=== PATIENT | male | born 1985 | race Caucasian/White ===

== ENCOUNTER 2017-07-14 23:16 | Emergency (ER) | payer SELFPAY ==
[~2017-07-14] VITALS: Ht 180.3 cm; Wt 63.5 kg
[2017-07-14 23:40] VITALS: BP 126/83
[2017-07-15] MEDS ORDERED: HYDROcodone/APAP 5/325MG 1 TAB TABLET PO ONE (00:15)
[2017-07-15] MEDS ORDERED: PENI500T PO (00:17)
[2017-07-15] MEDS ORDERED: HYDR-971 PO (00:17)
--- NOTE | 2017-07-15 00:17 | PHYS DOC ---
Past Medical History Past Medical History: No Pertinent History, Unknown Past Surgical History: No Surgical History Alcohol Use: None Drug Use: None Adult General Chief Complaint Chief Complaint: DENTAL PROBLEM HPI HPI Patient is a 31 year old male who presents with dental pain. Patient reports three-day history of severe right maxillary dental pain associated with tooth decay. He states he has had dental caries for months but just recently had onset of pain. Denies fevers or chills, nausea or vomiting, jaw swelling, trismus, abscess. He reports pain radiates to right ear. Has been using Orajel and clove extract which does not help with the pain. He does not have a dentist currently. Review of Systems Review of Systems Constitutional: Denies fever or chills HENT: Reports dental pain Respiratory: Denies cough Cardiovascular: Denies chest pain GI: Denies abdominal pain, nausea, vomiting Integument: Denies rash Neurologic: Denies headache Current Medications Current Medications Current Medications Medications (Trade) Dose Ordered Sig/Jen Start Time Stop Time Status Last Admin Dose Admin Acetaminophen/ Hydrocodone Bitart (Lortab 5/325) 2 tab 1X ONCE 07/15/17 00:15 07/15/17 00:16 DC 07/15/17 00:24 2 TAB Allergies Allergies Allergies Coded Allergies Type Severity Reaction Last Updated Verified No Known Drug Allergies 07/11/16 No Physical Exam Physical Exam Constitutional: Well developed, well nourished, no acute distress, non-toxic appearance. HENT: Normocephalic, atraumatic, bilateral external ears normal, right TM normal in appearance, no bulging or erythema oropharynx moist, nose normal. Eyes: conjunctiva normal, no discharge. Cardiovascular: no edema. Lungs & Thorax: no respiratory distress. Abdomen: nondistended. Skin: Warm, dry, no erythema, no rash. Extremities: No deformity Neurologic: Alert and oriented X 3 Current Patient Data Vital Signs Vital Signs Date Time Temp Pulse Resp B/P (MAP) Pulse Ox O2 Delivery O2 Flow Rate FiO2 07/15/17 00:24 18 100 Room Air 07/14/17 23:40 98.3 68 98.3 EKG EKG [] Radiology/Procedures Radiology/Procedures [] Course & Med Decision Making Course & Med Decision Making Pertinent Labs and Imaging studies reviewed. (See chart for details) The patient presents with dental pain. He has a ride home today. He was given pain medication. Gave prescription for penicillin VK. Instructed to use ibuprofen scheduled for pain control, provided prescription for [place] for severe breakthrough pain. No drinking alcohol or driving while taking [place]. Follow-up as soon as possible with a dentist for definitive management. Return to the emergency department for difficulty breathing or swallowing, any otherwise worsening condition. Discharged home in stable condition. [] Dragon Disclaimer Dragon Disclaimer This electronic medical record was generated, in whole or in part, using a voice recognition dictation system. Departure Departure Impression: Primary Impression: Pain, dental Disposition: HOME, SELF-CARE Condition: STABLE Referrals: NO PCP (PCP) Patient Instructions: Dental Caries Additional Instructions: You were seen in the emergency department today for dental pain. You need to see a dentist as soon as possible for this to be treated. In the meantime, take antibiotics as prescribed. Take ibuprofen 600 mg every 8 hours for pain and swelling. Use [place] as needed for severe breakthrough pain. No drinking alcohol or driving while taking [place]. Come back for difficulty breathing or swallowing , or any otherwise worsening condition. Scripts Hydrocodone/Apap 5-325 (NORCO 5-325 TABLET) 1 Each Tablet 1 TAB PO PRN Q6HRS Y for PAIN, #10 TAB 0 Refills Prov: DARIN PAYNE MD 07/15/17 Penicillin V Potassium (PENICILLIN V POTASSIUM) 500 Mg Tablet 500 MG PO QID for 7 Days, #28 TAB 0 Refills Prov: DARIN PAYNE MD 07/15/17 DARIN PAYNE MD Jul 15, 2017 00:17
== END 2017-07-15 00:35 | disposition home or self-care (01) ==
LOC: ER 23:16
DX: K08.89 Other specified disorders of teeth and supporting structures (principal); K02.9 Dental caries, unspecified; H92.01 Otalgia, right ear
CPT/HCPCS: 99283